=== PATIENT | male | born 1995 | race Caucasian/White ===

== ENCOUNTER 2024-01-31 06:05 | Day surgery (SDC) | payer OTHER ==
[~2024-01-31] VITALS: Ht 185.4 cm; Wt 97.0 kg
[2024-01-31] MEDS ORDERED: LR 1,000 ML IV SCH (06:15)
[2024-01-31] MEDS: NS 1,000 ML IV SCH (07:05)
[2024-01-31] MEDS ORDERED: SUGAMMADEX SODIUM 500 MG/5 ML VIAL (BRIDION) As Ordered ONE (07:07)
[2024-01-31] MEDS ORDERED: ROCURONIUM BROMIDE 50MG/5ML VIAL As Ordered ONE (07:07)
[2024-01-31] MEDS ORDERED: LIDOCAINE 2% 100MG/5ML SDV (FOR ANES.) As Ordered ONE (07:07)
[2024-01-31] MEDS ORDERED: propofoL 200 MG/20 ML VIAL As Ordered ONE (07:07)
[2024-01-31] MEDS ORDERED: ACETAMINOPHEN 1000MG/100ML IV BAG As Ordered ONE (07:07)
[2024-01-31] MEDS ORDERED: ONDANSETRON 4MG 2ML VIAL As Ordered ONE (07:07)
[2024-01-31] MEDS: VANCOMYCIN 1000MG/20ML VIAL As Ordered ONE (07:08)
[2024-01-31] MEDS ORDERED: fentaNYL 100 MCG/2 ML INJECTION As Ordered ONE (07:08)
[2024-01-31] MEDS ORDERED: MIDAZOLAM INJ 2MG/2ML VIAL As Ordered ONE (07:08)
[2024-01-31] MEDS ORDERED: dexmedeTOMIDine (4MCG/ML)200MCG/50ML BTL (PRECEDEX) As Ordered ONE (07:14)
[2024-01-31] MEDS: ROPIvacaine 0.5% 30ML VIAL PN ONE (07:25)
[2024-01-31] MEDS: LIDOCAINE 1% SDV 5ML VIAL PN ONE (07:25)
[2024-01-31] MEDS: dexAMETHasone 10MG/1ML VIAL PRES.FREE PN ONE (07:25)
[2024-01-31] MEDS ORDERED: MIDAZOLAM INJ 2MG/2ML VIAL IV PRN (07:25)
[2024-01-31] MEDS: ceFAZolin SOD 2 GM in IV 1 EA IV ONE (07:38)
[2024-01-31] MEDS: TRANEXAMIC ACID 100 MG/ML 10ML VIAL As Ordered ONE (07:55)
[2024-01-31] MEDS: EPINEPHrine INJ 1 MG/ML 1ML AMP As Ordered ONE (08:30)
[2024-01-31] MEDS ORDERED: KETOROLAC 60MG 2ML VIAL As Ordered ONE (08:52)
[2024-01-31] MEDS ORDERED: fentaNYL 100 MCG/2 ML INJECTION IV PRN (09:55)
[2024-01-31] MEDS ORDERED: oxyCODONE 5MG TAB PO PRN (09:55)
[2024-01-31] MEDS: ONDANSETRON 4MG 2ML VIAL IV PRN (10:48)
[2024-01-31 12:00] VITALS: BP 122/70; TEMP 97.6; O2SAT 94
== END 2024-01-31 12:06 | disposition home or self-care (01) ==
LOC: M SDC 06:05
PROVIDERS: ATTEND Orthopaedic Surgery
DX: S43.492A Other sprain of left shoulder joint, initial encounter (principal); M65.912 Unspecified synovitis and tenosynovitis, left shoulder; X50.0XXA Overexertion from strenuous movement or load, initial encounter; X50.3XXA Overexertion from repetitive movements, initial encounter; Y93.B2 Activity, push-ups, pull-ups, sit-ups; Y92.9 Unspecified place or not applicable
CPT/HCPCS: 29806; C1713; J0131; J0171; J0690; J1100; J1885; J2250; J2405; J3010